=== PATIENT | female | born 1945 | race Caucasian/White ===

== ENCOUNTER → 2022-12-15 | Day surgery (SDC) | payer MEDICARE, MEDICAID ==
[~2022-12-15] MED LIST: ACETAMINOPHEN 325MG TABLET PO PRN; ATROPINE SULFATE 1MG/10ML SYR IV PRN; FENTANYL CITRATE/PF 50MCG/ML 2ML VIAL ONE; HEPARIN 1000 UNITS/ML 10ML ONE; LIDOCAINE 2% 6ML GLYDO MM ONE; MIDAZOLAM HCL 5 MG/5 ML VIAL ONE; ONDANSETRON HCL 4MG/2ML INJ IV PRN; TETRACAINE/BENZOCAINE/BUTAMBEN 20 GM SPRAY MM ONE
== END | disposition home or self-care (01) ==
LOC: CCL 06:18
PROVIDERS: ATTEND Specialist
DX: I48.91 Unspecified atrial fibrillation (principal); I34.0 Nonrheumatic mitral (valve) insufficiency; I10 Essential (primary) hypertension; E78.5 Hyperlipidemia, unspecified; M19.90 Unspecified osteoarthritis, unspecified site; Z79.01 Long term (current) use of anticoagulants; Z79.899 Other long term (current) drug therapy; Z98.890 Other specified postprocedural states; Z88.2 Allergy status to sulfonamides
CPT/HCPCS: 93325; 93312; 93005; 92960; J3010; J1644; J2250; Z7610 ×8